=== PATIENT | female | born 1960 | race Caucasian/White ===

== ENCOUNTER 2019-06-04 05:40 | Day surgery (SDC) | payer MEDICAID ==
[2019-06-01 11:46] LABS: BASOPHILS % (AUTO) 0.8 % (0-1); EOSINOPHILS # (AUTO) 0.1 X10'3 (0-0.9); EOSINOPHILS % (AUTO) 2.5 % (0-6); LYMPHOCYTES # (AUTO) 1.8 X10'3 (1.1-4.8); LYMPHOCYTES % (AUTO) 31.5 % (21-51); MEAN CORPUSCULAR HEMOGLOBIN 30.3 PG (27.0-31.0); MEAN CORPUSCULAR HGB CONC 33.6 g/dL (33.0-36.5); MEAN CORPUSCULAR VOLUME 90.1 FL (78-98); MEAN PLATELET VOLUME 8.2 FL (7.4-10.4); MONOCYTES # (AUTO) 0.3 X10'3 (0-0.9); NEUTROPHILS # (AUTO) 3.4 X10'3 (1.8-7.7); NEUTROPHILS % (AUTO) 59.2 % (42-75); PRE OP HEMATOCRIT 43.8 % (35.0-45.0); PRE OP HEMOGLOBIN 14.7 g/dL (12.0-16.0); PRE OP PLATELET COUNT 210 X10'3 (140-440); RED BLOOD COUNT 4.87 X10'6 (4.20-5.60); RED CELL DISTRIBUTION WIDTH 14.6 % (11.5-14.5)
[2019-06-01 12:06] LABS: ALBUMIN/GLOBULIN RATIO 1.2 (1.1-1.5); ALKALINE PHOSPHATASE 77 IU/L (46-116); BLOOD UREA NITROGEN 16 MG/DL (7-18); BUN/CREATININE RATIO 22.9 (6.6-38.0); CALCIUM 9.5 MG/DL (8.5-10.1); CHLORIDE 104 MMOL/L (99-107); PRE OP ALT 25 U/L (30-65); PRE OP ANION GAP 10 (8-16); PRE OP AST 6 U/L (10-37); PRE OP BILIRUB, TOTAL 0.2 MG/DL (0.0-1.0); PRE OP GLUCOSE 97 MG/DL (70-104); PRE OP POTASSIUM 4.1 MMOL/L (3.4-5.1); PRE OP SODIUM 142 MMOL/L (135-145); TOTAL CARBON DIOXIDE 28.4 MMOL/L (24-32); TOTAL PROTEIN 7.3 G/DL (6.4-8.2); eGFR 87 ML/MIN
[~2019-06-04] VITALS: Ht 152.4 cm; Wt 72.0 kg
[~2019-06-04 05:40] MED LIST: NO HOME MEDS
[2019-06-04] MEDS ORDERED: ringers solution, lacted 1,000 ML IV SCH ×2 (06:15→08:39)
[2019-06-04] MEDS ORDERED: albuterol 2.5 MG/3 ML nebule NEB ONE (06:15)
[2019-06-04] MEDS ORDERED: famotidine 20mg tablet PO ONE (06:15)
[2019-06-04] MEDS ORDERED: ceFAZolin 1GM/D5W- ADD-VANTAGE 50 ML IV ONE (06:15)
[2019-06-04] MEDS ORDERED: BUPIVAcaine/PF 2.5mg/ml (0.25%) 10ml vial ONE (06:41)
[2019-06-04 07:09] VITALS: BP 137/76
[2019-06-04 07:13] VITALS: BP 137/76
[2019-06-04] MEDS ORDERED: fentaNYL/PF 50MCG/1 ML 2ML syringe IV PRN ×2 (08:40)
[2019-06-04] MEDS ORDERED: morphine 4 MG/ML inj SYRINge IV PRN ×2 (08:40)
[2019-06-04] MEDS ORDERED: ondansetron/PF 4mg/2ml inj IV PRN (08:40)
[2019-06-04] MEDS ORDERED: labetalol 20mg/4ml (5mg/ml) syringe IV PRN (08:40)
[2019-06-04] MEDS ORDERED: hydrALAZINE 20mg/ml inj. IV PRN (08:40)
[2019-06-04] MEDS ORDERED: midazolam 2 mg/2 ml injection ONE (08:48)
[2019-06-04] MEDS ORDERED: fentaNYL /PF 50mcg/ml 5ml ampule ONE (08:48)
[2019-06-04 09:19] VITALS: BP 138/89
--- NOTE | 2019-06-04 09:19 | NUR ---
Received from OR via [facility] , accompanied by Anesthesiologist PIETRO and report given by Anesthesiolgist. PATIENT WITH SPLINT TO LEFT HAND AND WRIST. THUMB SPICA. ALL CDI. PATIENT VSS. DENIES PAIN. + SENSATION AND MOVEMENT. Addendum: 06/04/19 at 0928 by Иван Wolfe RN, RN Amended: Links added.
[2019-06-04 09:29] VITALS: BP 109/67
[2019-06-04 09:39] VITALS: BP 112/69
--- NOTE | 2019-06-04 09:49 | NUR ---
ALL DC CRITERIA HAS BEEN MET. IV TAKEN OUT WITHOUT COMPLICATIONS. ALL INSTRUCTIONS COVERED AND ALL QUESTIONS ANSWERED. DRESSINGS CDI. OUT VIA WHEELCHAIR TO PERSONAL VEHICLE WHERE PATIENT WAS SECURED IN AND DRIVEN HOME BY FAMILY. MOTHER DROVE PATIENT HOME. BOTH TAKEN OUT IN WHEELCHAIRS Addendum: 06/04/19 at 0952 by Иван Wolfe RN, RN Amended: Links added.
== END 2019-06-04 09:49 | disposition home or self-care (01) ==
LOC: PAS 05:40
PROVIDERS: ATTEND Orthopaedic Surgery Hand Surgery
DX: M72.0 Palmar fascial fibromatosis [Dupuytren] (principal); M65.312 Trigger thumb, left thumb; M65.4 Radial styloid tenosynovitis [de Quervain]; M18.11 Unilateral primary osteoarthritis of first carpometacarpal joint, right hand; F17.210 Nicotine dependence, cigarettes, uncomplicated; E66.9 Obesity, unspecified; Z68.30 Body mass index [BMI] 30.0-30.9, adult; Z88.5 Allergy status to narcotic agent; Z98.890 Other specified postprocedural states; Z98.51 Tubal ligation status; Z72.89 Other problems related to lifestyle; Z79.899 Other long term (current) drug therapy
CPT/HCPCS: 25000; 26055; 26121; 36415; 80053; 82948; 85025; 93005; A6222; J0690; J2250; J3010; J3490; J7120; A4215; A4618; A6449; A7000